=== PATIENT | female | born 1965 | race Two or more races ===

== ENCOUNTER 2017-03-21 21:05 | Emergency (ER) | payer OTHER ==
--- NOTE | 2017-03-21 22:15 | EDPHY ---
H & P Time Seen by Provider: 03/21/17 22:02 HPI/ROS: CHIEF COMPLAINT: Swelling in right arm HISTORY OF PRESENT ILLNESS: Patient has had a 1 cm Skin bulge in the right AC for the past several years. Family and patient had different accounts but at least 3-4 years. Over the last 2 days became a little bit more painful and she presents for evaluation. REVIEW OF SYSTEMS: No skin discoloration, no recent trauma, no bleeding, no fever. PAST MEDICAL HISTORY: Diabetes and hypertension Social history: Here with family General Appearance: Alert and conversant, cooperative. Patient has a soft slightly fluctuant 1 cm swelling on the right AC. Easily compressible. No bruit. Not pulsatile. Skin is normal in color. Not painful to touch. No redness or warmth or lymphangitis. Normal motor sensory and radial pulse in the right hand. Emergency Department course/MDM: Bedside ultrasound was performed and only fluid is seen. Differential includes skin tag, cyst, I think that abscess is unlikely. Definitive referral to surgeon. Smoking Status: Never smoked Constitutional: Initial Vital Signs Temperature (C) 36.4 C 03/21/17 21:22 Heart Rate 65 03/21/17 21:22 Respiratory Rate 20 03/21/17 21:22 Blood Pressure 131/72 H 03/21/17 21:22 O2 Sat (%) 97 03/21/17 21:22 O2 Delivery Mode Room Air Allergies/Adverse Reactions: No Known Allergies Allergy (Verified 03/21/17 21:21) Home Medications: Medication Instructions Recorded Glyburide 10/24/16 Lisinopril 10/24/16 Metformin HCl 10/24/16 MDM/Departure - Depart Disposition: Home, Routine, Self-Care Clinical Impression: cyst right arm Condition: Good Instructions: Additional Information Referrals: Alondra Parks PAC [Primary Care Provider] - As per Instructions Mike Toribio MD [Medical Doctor] - As per Instructions (surgeon referral for definitive evaluation) Print Language: Colombian
[2017-03-21 22:54] VITALS: RESP 14; O2SAT 96
[2017-03-21 23:02] VITALS: BP 91/61; PULSE 74; TEMP 99.1
== END 2017-03-21 22:40 | disposition home or self-care (01) ==
DX: L72.9 Follicular cyst of the skin and subcutaneous tissue, unspecified (principal); I10 Essential (primary) hypertension; E11.9 Type 2 diabetes mellitus without complications; Z79.84 Long term (current) use of oral hypoglycemic drugs

== ENCOUNTER 2017-07-20 05:37 | Emergency (ER) | payer OTHER ==
--- NOTE | 2017-07-20 06:44 | CPEKG ---
Heart Rate: 85 RR Interval: 706 P-R Interval: 168 QRSD Interval: 90 QT Interval: 396 QTC Interval: 471 P Largo: 46 QRS [place]argo: 57 T Wave [place]: 71 EKG Severity - NORMAL ECG - EKG Impression: SINUS RHYTHM Electronically Signed By: Sunitha Arriaza 20-Jul-2017 08:44:30
--- NOTE | 2017-07-20 07:05 | EDPHY ---
H & P Stated Complaint: mid epigastric pain Time Seen by Provider: 07/20/17 06:59 - Personal History LMP (Females 10-55): Over 28 Days Ago Current Tetanus/Diphtheria Vaccine: Unsure Current Tetanus Diphtheria and Acellular Pertussis (TDAP): Unsure - Medical/Surgical History Hx Asthma: No Hx Chronic Respiratory Disease: No Hx Diabetes: Yes Hx Cardiac Disease: No Hx Renal Disease: No Hx Cirrhosis: No Hx Alcoholism: No Hx HIV/AIDS: No Hx Splenectomy or Spleen Trauma: No Other PMH: DMII, HTN, - Social History Smoking Status: Never smoked Constitutional: Initial Vital Signs Temperature (C) 37.0 C 07/20/17 05:57 Heart Rate 90 07/20/17 05:57 Respiratory Rate 18 07/20/17 05:57 Blood Pressure 141/82 H 07/20/17 05:57 O2 Sat (%) 97 07/20/17 05:57 O2 Delivery Mode Room Air Allergies/Adverse Reactions: No Known Allergies Allergy (Verified 03/21/17 21:21) Home Medications: Medication Instructions Recorded Lisinopril 10/24/16 Metformin HCl 10/24/16 Aspirin EC 81 mg (*) 07/20/17 Atorvastatin Calcium 07/20/17 Departure - Departure Referrals: Alondra Parks, PAC [Primary Care Provider] - As per Instructions
[2017-07-20] MEDS ORDERED: HYOSCYAMINE SULFATE 0.125 MG TAB PO ONE (07:14)
[2017-07-20] MEDS ORDERED: LIDOCAINE 2% VISCOUS 15 ML UDCUP PO ONE (07:14)
[2017-07-20] MEDS ORDERED: NS 500 ML IV ONE (07:14)
[2017-07-20] MEDS ORDERED: MAG HYDROX/AL HYDROX/SIMETH 30 ML UDCUP PO ONE (07:14)
[2017-07-20] MEDS ORDERED: ASPIRIN 81 MG CHEWABLE TAB PO ONE (07:14)
--- NOTE | 2017-07-20 07:18 | EDPHY ---
HPI/HX/ROS/PE/MDM Narrative: CHIEF COMPLAINT: Chest Pain HISTORY OF PRESENT ILLNESS: The patient is a Macanese speaking 51 y/o female complaining of intermittent chest pain onset last night. She has a history of hypertension and diabetes. She describes her pain as non-radiating, 7/10 in severity, located substernally, and burning in quality. Despite pain she was able to sleep until 04:30 when she noticed her pain again. She has associated sensation of needing to belch, and mild LLQ abdominal cramping particularly after eating. She had similar symptoms once 15 years ago but was not diagnosed, she received a pill years ago for "acid". She has no known cardiac disease, gastric ulcers, GERD, cholecystectomy or other GI disorders. No fever, chills, shortness of breath, palpitations, vomiting, diarrhea, urinary complaints, headache, lightheadedness. She takes a daily aspirin. Son at bedside, translated initial history. She also notes a nonpainful sensation of a bulge in her RLQ when standing. REVIEW OF SYSTEMS: Aside from elements discussed in the HPI, a comprehensive 10-point review of systems was reviewed and is negative. PAST MEDICAL HISTORY: Diabetic. Hypertensive. SOCIAL HISTORY: Nonsmoker. No alcohol use. Macanese speaking only. Son at bedside. PCP: BRENNON Barrientos. VITAL SIGNS: Reviewed by me GENERAL: Well-developed, well-nourished, resting comfortably in no respiratory distress. HEENT: Atraumatic. Eyes: No icterus, no injection. Mouth: moist mucous membranes. No erythema or lesions. Neck: supple with no adenopathy. LUNGS: Clear to auscultation bilaterally, no wheezes, rhonchi or rales. CARDIAC: Regular rate and rhythm, no rubs, murmurs or gallops. No chest wall tenderness. ABDOMEN: Soft, nontender, nondistended, bowel sounds normal. BACK: No CVA tenderness. EXTREMITIES: No trauma. No edema. Range of motion is normal throughout. NEURO: Alert and oriented, grossly nonfocal. SKIN: Warm and dry, no rash. PSYCHIATRIC: Normal mentation, no agitation. Portions of this note were transcribed by a medical liaison. I personally performed a history, physical exam, medical decision making, and confirmed accuracy of information the transcribed note. ED Course: Plan for IV, labs, EKG, and symptom management with GI cocktail. The 12 lead EKG was interpreted by myself. Regular rate 85 and rhythm. See hard copy and/or "tracemaster" electronic copy for interpretation. Patient's laboratory data demonstrates a negative troponin, normal chemistries including LFTs and lipase. Patient's pain significantly improved with a GI cocktail. Given the patient's history of diabetes and hypertension, I believe thorough investigation of a possible cardiac source of the patient's pain is warranted. Patient had a repeat troponin drawn at 4:00 a.m. which was negative. 1210: Consulted with BRENNON Bundy cardiology and discussed chest pain. Recommends urgent stress testing. 1213: Reassessed patient who states after GI cocktail, pain has subsided. I recommended a stress test today due to risk factors. Patient is reluctant due to her timeline and would rather have test as an outpatient. I advised her to have the test performed today. 1220: Cardiology can perform stress test at 1300. Patient agrees to stress test. Stress test unremarkable per RBENNON Bundy. Patient will be discharged home with instructions to follow up with her PCP. MDM: After history and physical examination, the differential for chest pain was considered, including but not limited to, myocardial ischemia, acute coronary syndrome, pulmonary embolus, gastrointestinal source, GERD, reflux, esophageal spasm, chest wall pain, pleural inflammation and pulmonary infectious causes. - Data Points Imaging Results: Imaging Impressions Chest X-Ray 07/20/17 07:17 Impression: No acute pulmonary disease. Imaging: Discussed imaging studies w/ machine scallop cutter Radiologist, I viewed and interpreted images myself Laboratory Results: Laboratory Results 07/20/17 07:10 07/20/17 07:10 07/20/17 07/20/17 07/20/17 11:05 07:10 07:10 WBC RBC Hgb Hct MCV MCH MCHC RDW Plt Count MPV Neut % (Auto) Lymph % (Auto) [place] % (Auto) Eos % (Auto) Baso % (Auto) Nucleat RBC Rel Count Absolute Neuts (auto) Absolute Lymphs (auto) Absolute Monos (auto) Absolute Eos (auto) Absolute Basos (auto) Absolute Nucleated RBC Immature Gran % Immature Gran # D-Dimer < 0.27 ug/mLFEU ug/mLFEU (0.00-0.50) Sodium 142 mEq/L mEq/L (134-144) Potassium 4.1 mEq/L mEq/L (3.5-5.2) Chloride 103 mEq/L mEq/L (97-110) Carbon Dioxide 24 mEq/l mEq/l (22-31) Anion Gap 15 mEq/L mEq/L (8-16) BUN 13 mg/dL mg/dL (7-23) Creatinine 0.6 mg/dL mg/dL (0.6-1.0) Estimated GFR > 60 Glucose 115 mg/dL H mg/dL (70-100) Calcium 9.7 mg/dL mg/dL (8.5-10.4) Total Bilirubin 0.5 mg/dL mg/dL (0.1-1.4) Conjugated Bilirubin 0.2 mg/dL mg/dL (0.0-0.5) Unconjugated Bilirubin 0.3 mg/dL mg/dL (0.0-1.1) AST 21 IU/L IU/L (14-46) ALT 32 IU/L IU/L (9-52) Alkaline Phosphatase 68 IU/L IU/L (38-126) Troponin I < 0.012 ng/mL ng/mL < 0.012 ng/mL ng/mL (0.000-0.034) (0.000-0.034) Total Protein 8.0 g/dL g/dL (6.3-8.2) Albumin 4.8 g/dL g/dL (3.5-5.0) Lipase 68 IU/L IU/L (23-300) 07/20/17 07:10 WBC 5.21 10^3/uL 10^3/uL (3.80-9.50) RBC 4.37 10^6/uL 10^6/uL (4.18-5.33) Hgb 13.4 g/dL g/dL (12.6-16.3) Hct 39.1 % % (38.0-47.0) MCV 89.5 fL fL (81.5-99.8) MCH 30.7 pg pg (27.9-34.1) MCHC 34.3 g/dL g/dL (32.4-36.7) RDW 12.2 % % (11.5-15.2) Plt Count 197 10^3/uL 10^3/uL (150-400) MPV 10.5 fL fL (8.7-11.7) Neut % (Auto) 61.9 % % (39.3-74.2) Lymph % (Auto) 28.0 % % (15.0-45.0) [place] % (Auto) 8.1 % % (4.5-13.0) Eos % (Auto) 1.2 % % (0.6-7.6) Baso % (Auto) 0.4 % % (0.3-1.7) Nucleat RBC Rel Count 0.0 % % (0.0-0.2) Absolute Neuts (auto) 3.23 10^3/uL 10^3/uL (1.70-6.50) Absolute Lymphs (auto) 1.46 10^3/uL 10^3/uL (1.00-3.00) Absolute Monos (auto) 0.42 10^3/uL 10^3/uL (0.30-0.80) Absolute Eos (auto) 0.06 10^3/uL 10^3/uL (0.03-0.40) Absolute Basos (auto) 0.02 10^3/uL 10^3/uL (0.02-0.10) Absolute Nucleated RBC 0.00 10^3/uL 10^3/uL (0-0.01) Immature Gran % 0.4 % % (0.0-1.1) Immature Gran # 0.02 10^3/uL 10^3/uL (0.00-0.10) D-Dimer Sodium Potassium Chloride Carbon Dioxide Anion Gap BUN Creatinine Estimated GFR Glucose Calcium Total Bilirubin Conjugated Bilirubin Unconjugated Bilirubin AST ALT Alkaline Phosphatase Troponin I Total Protein Albumin Lipase Medications Given: Discontinued Medications Al Hydroxide/Mg Hydroxide (Maalox Susp) 30 ml PO ONCE ONE Stop: 07/20/17 07:15 Last Admin: 07/20/17 07:53 Dose: 30 ml Aspirin (Aspirin) 324 mg PO EDNOW ONE Stop: 07/20/17 07:15 Last Admin: 07/20/17 07:50 Dose: 324 mg Hyoscyamine Sulfate (Levsin, Hyomax-Sl) 0.25 mg PO ONCE ONE Stop: 07/20/17 07:15 Last Admin: 07/20/17 07:50 Dose: 0.25 mg Sodium Chloride (Ns) 500 mls @ 1,000 mls/hr IV EDNOW ONE PRN Reason: Protocol Stop: 07/20/17 07:43 Last Admin: 07/20/17 08:10 Dose: 500 mls Lidocaine (Lidocaine 2% Viscous) 15 ml PO ONCE ONE Stop: 07/20/17 07:15 Last Admin: 07/20/17 07:53 Dose: 15 ml General Time Seen by Provider: 07/20/17 06:59 Initial Vital Signs: Initial Vital Signs Temperature (C) 37.0 C 07/20/17 05:57 Heart Rate 90 07/20/17 05:57 Respiratory Rate 18 07/20/17 05:57 Blood Pressure 141/82 H 07/20/17 05:57 O2 Sat (%) 97 07/20/17 05:57 O2 Delivery Mode Room Air Allergies/Adverse Reactions: No Known Allergies Allergy (Verified 03/21/17 21:21) Home Medications: Medication Instructions Recorded Lisinopril 10/24/16 Metformin HCl 10/24/16 Aspirin EC 81 mg (*) 07/20/17 Atorvastatin Calcium 07/20/17 Departure - Departure Disposition: Home, Routine, Self-Care Clinical Impression: Chest discomfort Condition: Good Instructions: Chest Pain (ED), Gastroesophageal Reflux Disease (ED) Additional Instructions: Evaluation for your heart was reassuring. There is no evidence that the pain is coming from her heart. Your stress test was normal. Evaluacion de newman george fue reasegurante. No hay evidencia que el dolor viene de newman george. Tu examen de prueba de esfuerzo fue normal. I would suggest that you obtain an [id number] prescription for Prilosec or Protonix. Please take this as directed. This will help with any reflux or stomach acid which may be responsible for your pain. Te sugiero que obtengas maximo receta (que se compra sin receta) para Prilosec o Protonix. Por favor tomarlo rashi indicado. Biggers te ayudara con reflujo o acido en el estomago que puede ser responsable por tu dolor. Please follow up as scheduled with your primary care physician at [facility] on Sunday. Por favor ir a tu kelby de seguimiento programada con tu Dr. de cuidado primario en [facility] el dana. Return to the emergency department or seek care urgently if you develop worsening symptoms, palpitations, fainting, lightheadedness, dizziness, or other concerns. Regresar a la delia de Emergencia o buscar ayuda medica en maximo manera urgente si desarollas empeoramiento de sintomas, palpitaciones, desmayo, mareo, u otras preocupaciones. Referrals: Alondra Parks, PAC [Primary Care Provider] - As per Instructions Report Scribed for: Breonna Purvis Report Scribed by: Anyi Vargas Date of Report: 07/20/17 Time of Report: 15:16
[2017-07-20 07:23] LABS: % IMMATURE GRANULYOCYTES 0.4 % (0.0-1.1); ABSOLUTE IMMATURE GRANULOCYTES 0.02 10^3/uL (0.00-0.10); ADD DIFF? NO; ADD MORPH? NO; ADD SCAN? NO; ATYPICAL LYMPHOCYTE FLAG 0 (0-99); FRAGMENT RBC FLAG 0 (0-99); HEMATOCRIT 39.1 % (38.0-47.0); HEMOGLOBIN 13.4 g/dL (12.6-16.3); LEFT SHIFT FLG 0 (0-99); LIPEMIA HEMOLYSIS FLAG 90 (0-99); MEAN CELL HEMOGLOBIN 30.7 pg (27.9-34.1); MEAN CELL HEMOGLOBIN CONCENTR. 34.3 g/dL (32.4-36.7); MEAN CELL VOLUME 89.5 fL (81.5-99.8); MEAN PLATELET VOLUME 10.5 fL (8.7-11.7); PLATELET CLUMPS FLAG 0 (0-99); PLATELET COUNT 197 10^3/uL (150-400); RED BLOOD CELL COUNT 4.37 10^6/uL (4.18-5.33); RED CELL DISTRIBUTION WIDTH 12.2 % (11.5-15.2)
[2017-07-20 07:38] LABS: ALANINE AMINOTRANSFERASE 32 IU/L (9-52); ALBUMIN 4.8 g/dL (3.5-5.0); ALKALINE PHOSPHATASE 68 IU/L (38-126); ANION GAP 15 mEq/L (8-16); ASPARTATE AMINOTRANSFERASE 21 IU/L (14-46); BILIRUBIN,TOTAL 0.5 mg/dL (0.1-1.4); BILIRUBIN-CONJUGATED 0.2 mg/dL (0.0-0.5); BILIRUBIN-UNCONJUGATED 0.3 mg/dL (0.0-1.1); CALCIUM 9.7 mg/dL (8.5-10.4); CARBON DIOXIDE 24 mEq/l (22-31); CHLORIDE 103 mEq/L (97-110); CREATININE 0.6 mg/dL (0.6-1.0); GLOMERULAR FILTRATION RATE > 60; GLUCOSE 115 mg/dL (70-100); POTASSIUM 4.1 mEq/L (3.5-5.2); SODIUM 142 mEq/L (134-144)
[2017-07-20 07:48] LABS: TROPONIN I < 0.012 ng/mL (0.000-0.034)
[2017-07-20 09:40] VITALS: RESP 16; TEMP 99.1
--- NOTE | 2017-07-20 14:39 | CPR ---
[f rep st] NONINVASIVE CARDIAC PROCEDURE REPORT PROCEDURE: Exercise treadmill test INDICATION FOR PROCEDURE: Episodes of midsternal chest pressure, multiple cardiac risk factors. PRE: After obtaining informed consent and ensuring, the patient was placed on electrocardiogram. I nitial EKG shows sinus rhythm, with nonspecific T-wave abnormalities in inferior lateral leads. Ashlee jones is Micronesian-speaking only, and she is seen with a mica parts sprayer present. Patient denies o f any chest pain, shortness of breath, or symptoms suggesting of ischemia. Initial blood pressure 1 28/46, saturation 95% on room air. STRESS: The patient was placed on exercise treadmill, following standard Yahir protocol, with the f roxanneing findings: 1. Patient exercised for 7 minutes. 2. 8.3 METS. 3. Heart rate obtained was 160 beats per minute, which was 95% MPHR. 4. Patient had no significant ST shifts suggesting of ischemia. 5. The patient had no chest pain or symptoms of ischemia during stress. 6. BP variation: Rest 128/46, peak 168/82. 7. Patient maintained an SpO2 greater than 90%. 8. Patient had rare PVC in stress and recovery. 9. Test was stopped due to maximum effort. 10. Bridges treadmill score of 7, placing patient at low cardiovascular risk. RECOVERY: The patient recovered for 5 minutes, heart rate returning back down to 96 beats per minut e within 5 minutes, blood pressure decreasing down to 140/80, patient remained asymptomatic. The kanika olivo was noted to have a rare premature ventricular contraction during recovery, but no other malig nant arrhythmias were noted. IMPRESSION: A 51-year-old female with history of hypertension, hyperlipidemia, and diabetes. Came into the emergency department reporting ongoing recurring chest pressure, had negative troponins x2 with no significant EKG changes suggestive of ischemia. Symptoms were relieved with a GI cocktail. Underwent exercise treadmill for further evaluation for cardiac ischemia, no significant ST shifts at peak exercise suggesting of ischemia. The patient was asymptomatic of any symptoms during stress suggesting of ischemia. Bridges treadmill score of 7, placing her at low cardiovascular risk. Results called to Dr. Purvis in the ER. /[id number]/MODL
[2017-07-20 15:17] VITALS: BP 142/84; PULSE 72; O2SAT 95
== END 2017-07-20 15:10 | disposition home or self-care (01) ==
DX: R07.89 Other chest pain (principal); E11.9 Type 2 diabetes mellitus without complications; I10 Essential (primary) hypertension; E86.9 Volume depletion, unspecified; Z79.82 Long term (current) use of aspirin; Z79.84 Long term (current) use of oral hypoglycemic drugs

== ENCOUNTER 2019-03-16 00:54 | Emergency (ER) | payer OTHER ==
[2019-03-16] MEDS ORDERED: NS 1,000 ML IV ONE (00:58)
--- NOTE | 2019-03-16 00:58 | EDPHY ---
H & P Time Seen by Provider: 03/16/19 00:58 HPI/ROS: HPI CHIEF COMPLAINT: Right lower quadrant abdominal pain. HISTORY OF PRESENT ILLNESS: Patient is a 53-year-old female, history of hypertension and diabetes she presents emergency room with right lower quadrant abdominal pain. The patient reports to me that she has had intermittent abdominal pain x1 year however over the last 24 hr she has had worsening right lower quadrant pain. She reports to me she has a bulge there. She reports it is more notice when she stands up. States over last 24 hr given her increasing pain she has nausea but no vomiting. Denies chest pain or shortness of breath, denies fever, denies pleuritic pain. Patient is predominantly Czech-speaking only. Daughter at bedside speaks fluent Persian and Czech. Declined salad chef. Past Medical History: Hypertension, diabetes, obesity Past Surgical History: No recent surgical history no previous abdominal surgeries. Social History: Denies daily use of drugs alcohol tobacco. Family History: Noncontributory ROS REVIEW OF SYSTEMS: 10 Systems were reviewed and negative with the exception of the elements mentioned in the history of present illness. Exam Constitutional triage nursing summary reviewed, vital signs reviewed, awake/ alert. Eyes normal conjunctivae and sclera, EOMI, PERRLA. HENT normal inspection, atraumatic, moist mucus membranes, no epistaxis, neck supple/ no meningismus, no raccoon eyes. Respiratory clear to auscultation bilaterally, normal breath sounds, no respiratory distress, no wheezing. Cardiovascular rate normal, regular rhythm, no murmur, no edema, distal pulses normal. Gastrointestinal mild tender palpation right lower quadrant, no rebound, no guarding, normal bowel sounds, no distension, no pulsatile mass. Genitourinary no CVA tenderness. On exam when I stand her up I really can't appreciate a significant large hernia. Musculoskeletal no midline vertebral tenderness, full range of motion, no calf swelling, no tenderness of extremities, no meningismus, good pulses, neurovascularly intact. Skin pink, warm, & dry, no rash, skin atraumatic. Neurologic awake, alert and oriented x 3, AAOx3, moves all 4 extremities equally, motor intact, sensory intact, CN II-XII intact, normal cerebellar, normal vision, normal speech. Psychiatric normal mood/affect. Heme/Lymph/Immune no lymphadenopathy. Differential Diagnosis: Differential diagnosis includes but is not limited to and in no particular order: Hernia, Bowel obstruction, appendicitis, gallbladder disease, diverticulitis, colitis, enteritis, perforated viscus, gastritis, GERD, esophagitis, urinary tract infection, pyelonephritis, kidney stones Medical Decision Making: Plan for this patient IV establishment IV fluids, basic labs, CT scan abdomen pelvis with IV contrast given her right lower quadrant pain rule out appendicitis. Re-evaluation: CT scan abdomen pelvis with IV contrast faxed to me by direct Radiology at time 2:55 a.m., this shows large amount of colonic stool throughout. Correlate for constipation, no other acute abdominal pelvic process seen by CT. Specifically I do not appreciate a significant hernia. Appendix is visualized and normal. Patient re-evaluated 4:07 a.m. Resting comfortably in no acute distress. Abdomen soft nontender. Patient requesting discharge. Labs reviewed in ear reviewed negative. She may have a hernia that comes in out, she has no pain on exam and I do not palpate a large right-sided abdominal hernia where she has pain. I do recommend she follows out patient with a surgeon or primary care doctor. Additionally discussed return precautions return emergency room if worsening abdominal pain, fever, vomiting, not doing well. She is comfortable this plan. Source: Patient - Medical/Surgical History Hx Asthma: No Hx Chronic Respiratory Disease: No Hx Diabetes: Yes Hx Cardiac Disease: No Hx Renal Disease: No Hx Cirrhosis: No Hx Alcoholism: No Hx HIV/AIDS: No Hx Splenectomy or Spleen Trauma: No Other PMH: DM2, HTN, - Social History Smoking Status: Never smoked Constitutional: Initial Vital Signs Temperature (C) 36.7 C 03/16/19 01:00 Heart Rate 82 03/16/19 01:00 Respiratory Rate 20 03/16/19 01:00 Blood Pressure 144/87 H 03/16/19 01:00 O2 Sat (%) 93 03/16/19 01:00 O2 Delivery Mode Room Air Allergies/Adverse Reactions: No Known Allergies Allergy (Verified 06/27/18 04:00) Home Medications: Medication Instructions Recorded Lisinopril 10/24/16 Metformin HCl 10/24/16 Aspirin EC 81 mg (*) 07/20/17 Atorvastatin Calcium 07/20/17 Medical Decision Making - Data Points Laboratory Results: Laboratory Results 03/16/19 01:10 03/16/19 01:10 03/16/19 03/16/1919 01:10 01:10 01:10 WBC 6.03 10^3/uL 10^3/uL (3.80-9.50) RBC 4.32 10^6/uL 10^6/uL (4.18-5.33) Hgb 13.0 g/dL g/dL (12.6-16.3) Hct 38.6 % % (38.0-47.0) MCV 89.4 fL fL (81.5-99.8) MCH 30.1 pg pg (27.9-34.1) MCHC 33.7 g/dL g/dL (32.4-36.7) RDW 12.3 % % (11.5-15.2) Plt Count 226 10^3/uL 10^3/uL (150-400) MPV 10.9 fL fL (8.7-11.7) Neut % (Auto) 46.4 % % (39.3-74.2) Lymph % (Auto) 41.3 % % (15.0-45.0) [place] % (Auto) 9.0 % % (4.5-13.0) Eos % (Auto) 2.8 % % (0.6-7.6) Baso % (Auto) 0.3 % % (0.3-1.7) Nucleat RBC Rel Count 0.0 % % (0.0-0.2) Absolute Neuts (auto) 2.80 10^3/uL 10^3/uL (1.70-6.50) Absolute Lymphs (auto) 2.49 10^3/uL 10^3/uL (1.00-3.00) Absolute Monos (auto) 0.54 10^3/uL 10^3/uL (0.30-0.80) Absolute Eos (auto) 0.17 10^3/uL 10^3/uL (0.03-0.40) Absolute Basos (auto) 0.02 10^3/uL 10^3/uL (0.02-0.10) Absolute Nucleated RBC 0.00 10^3/uL 10^3/uL (0-0.01) Immature Gran % 0.2 % % (0.0-1.1) Immature Gran # 0.01 10^3/uL 10^3/uL (0.00-0.10) Sodium 141 mEq/L mEq/L (135-145) Potassium 3.9 mEq/L mEq/L (3.5-5.2) Chloride 105 mEq/L mEq/L (97-110) Carbon Dioxide 25 mEq/l mEq/l (22-31) Anion Gap 11 mEq/L mEq/L (6-14) BUN 22 mg/dL mg/dL (7-23) Creatinine 0.7 mg/dL mg/dL (0.6-1.0) Estimated GFR > 60 Glucose 128 mg/dL H mg/dL (70-100) Calcium 9.2 mg/dL mg/dL (8.5-10.4) Total Bilirubin 0.3 mg/dL mg/dL (0.1-1.4) Conjugated Bilirubin 0.3 mg/dL mg/dL (0.0-0.5) Unconjugated Bilirubin 0.0 mg/dL mg/dL (0.0-1.1) AST 19 IU/L IU/L (14-46) ALT 34 IU/L IU/L (9-52) Alkaline Phosphatase 82 IU/L IU/L (38-126) Total Protein 7.9 g/dL g/dL (6.3-8.2) Albumin 4.9 g/dL g/dL (3.5-5.0) Lipase 79 IU/L IU/L (23-300) Beta HCG, Qual NEGATIVE Urine Color Urine Appearance Urine pH Ur Specific [place] Urine Protein Urine Ketones Urine Blood Urine Nitrate Urine Bilirubin Urine Urobilinogen Ur Leukocyte Esterase Urine Glucose 03/16/19 01:01 WBC RBC Hgb Hct MCV MCH MCHC RDW Plt Count MPV Neut % (Auto) Lymph % (Auto) [place] % (Auto) Eos % (Auto) Baso % (Auto) Nucleat RBC Rel Count Absolute Neuts (auto) Absolute Lymphs (auto) Absolute Monos (auto) Absolute Eos (auto) Absolute Basos (auto) Absolute Nucleated RBC Immature Gran % Immature Gran # Sodium Potassium Chloride Carbon Dioxide Anion Gap BUN Creatinine Estimated GFR Glucose Calcium Total Bilirubin Conjugated Bilirubin Unconjugated Bilirubin AST ALT Alkaline Phosphatase Total Protein Albumin Lipase Beta HCG, Qual Urine Color COLORLESS Urine Appearance CLEAR Urine pH 6.0 (5.0-7.5) Ur Specific [place] 1.002 (1.002-1.030) Urine Protein NEGATIVE (NEGATIVE) Urine Ketones NEGATIVE (NEGATIVE) Urine Blood NEGATIVE (NEGATIVE) Urine Nitrate NEGATIVE (NEGATIVE) Urine Bilirubin NEGATIVE (NEGATIVE) Urine Urobilinogen NEGATIVE EU EU (0.2-1.0) Ur Leukocyte Esterase NEGATIVE (NEGATIVE) Urine Glucose NEGATIVE (NEGATIVE) Medications Given: Discontinued Medications Sodium Chloride (Ns) 1,000 mls @ 0 mls/hr IV EDNOW ONE; Wide Open PRN Reason: Protocol Stop: 03/16/19 00:59 Last Admin: 03/16/19 01:10 Dose: 1,000 mls Departure - Departure Disposition: Home, Routine, Self-Care Clinical Impression: Abdominal pain Qualifiers: Abdominal location: unspecified location Qualified Code(s): R10.9 - Unspecified abdominal pain Condition: Good Instructions: Acute Abdominal Pain (ED) Referrals: Unknown,Unknown [Primary Care Provider] - As per Instructions Sukhi Alex MD [Medical Doctor] - As per Instructions Print Language: Czech
[2019-03-16 01:23] LABS: PLATELET COUNT 226 10^3/uL (150-400)
[2019-03-16] MEDS ORDERED: IOPAMIDOL (ISOVUE-300) 100 ML BTL ONE (01:36)
[2019-03-16 04:19] VITALS: BP 136/77
== END 2019-03-16 04:18 | disposition home or self-care (01) ==
DX: R10.31 Right lower quadrant pain (principal); I10 Essential (primary) hypertension; E11.9 Type 2 diabetes mellitus without complications; E66.9 Obesity, unspecified
CPT/HCPCS: Q9967